=== PATIENT | female | born 1935 | race Caucasian/White ===

== ENCOUNTER 2017-08-22 10:22 | Emergency (ER) | payer MEDICARE ==
[~2017-08-22 10:22] MED LIST: ASPI81 PO; CALTTAB PO; FISH1000 PO; SIMV40TA PO
[2017-08-22] MEDS ORDERED: SIMV40TA PO (10:34)
--- NOTE | 2017-08-22 11:00 | RADRPT ---
EXAM DATE/TIME: 08/22/2017 10:42 [place] COMPARISON: No previous studies available for comparison. INDICATIONS : Left wrist pain post fall today. MEDICAL HISTORY : Hypercholesterolemia. Gastroesophageal reflux disease. SURGICAL HISTORY : Hysterectomy. D & C. Bladder suspension. ENCOUNTER: Initial ACUITY: 1 day PAIN SCORE: 6/10 LOCATION: Left wrist FINDINGS: Two view examination of the left wrist demonstrates transverse distal radial fracture 1.4 cm proximal to the radiocarpal articulation.. The joint spaces are maintained. Bony mineralization is normal. A cyst in the scaphoid bone. Nondisplaced ulnar styloid fracture CONCLUSION: Slightly impacted distal radial fracture without angulation or displacement. Nondisplaced fracture of the ulnar styloid.. Hi Anderson MD on August 22, 2017 at 10:56 Board Certified Radiologist. This report was verified electronically.
[2017-08-22] MEDS ORDERED: NORC5TAB PO (11:16)
--- NOTE | 2017-08-22 11:16 | PD ---
HPI Chief Complaint: Injury Time Seen by Provider: 10:52 Travel History International Travel<30 days: No Contact w/Intl Traveler<30days: No Traveled to known affect area: No History of Present Illness HPI 82-year-old female with left wrist pain after she tripped and fell onto an outstretched hand this morning. No head injury loss of consciousness. Patient is not anticoagulated. Symptom severity is moderate. Aggravated by palpation of the distal radius and range of motion of the wrist. Denies altered sensation or weakness of the wrist and hand. Denies any other injuries. PFSH Past Medical History Blood Disorders: No Cancer: No Cardiovascular Problems: No High Cholesterol: Yes Diabetes: No Diminished Hearing: No Endocrine: No Gastrointestinal Disorders: Yes (GERD) GERD: Yes Glaucoma: No Genitourinary: No Hepatitis: No Hiatal Hernia: No Hypertension: No Immune Disorder: No Musculoskeletal: No Neurologic: No Psychiatric: No Reproductive: No Respiratory: No Thyroid Disease: No Influenza Vaccination: Yes ?: Not Past Surgical History Abdominal Surgery: Yes (STENT IN R GROIN) AICD: No Body Medical Devices: STENT IN R GROIN Cardiac Surgery: No Ear Surgery: No Endocrine Surgery: No Eye Surgery: No Genitourinary Surgery: No Gynecologic Surgery: Yes (D&C, HYSTERECTOMY/ BLADDER SUSP.) Joint Replacement: No Oral Surgery: No Pacemaker: No Thoracic Surgery: No Other Surgery: Yes Social History Alcohol Use: No (RARELY) Tobacco Use: No Substance Use: No Allergies-Medications (Allergen,Severity, Reaction): Coded Allergies: No Known Allergies (Unverified Adverse Reaction, Unknown, 08/22/17) Reported Meds & Prescriptions Reported Meds & Active Scripts Active Reported Simvastatin 40 Mg Tab 40 Mg PO HS Review of Systems Except as stated in HPI: all other systems reviewed are Neg General / Constitutional: No: Fever Eyes: No: Visual changes HENT: No: Headaches Cardiovascular: No: Chest Pain or Discomfort Respiratory: No: Shortness of Breath Gastrointestinal: No: Abdominal Pain Neurologic: No: Weakness Physical Exam Narrative GENERAL: Alert and well-appearing 82-year-old female. SKIN: Warm and dry. HEAD: Normocephalic. Atraumatic EYES: Pupils equal, round, reactive to light. EOMs intact. No injection or drainage. NECK: Supple, trachea midline. No midline spine tenderness. Freely moves the neck. CARDIOVASCULAR: Regular rate and rhythm without murmurs, gallops, or rubs. No chest wall tenderness RESPIRATORY: Breath sounds equal bilaterally. No accessory muscle use. GASTROINTESTINAL: Abdomen soft, non-tender, nondistended. No rebound or guarding. MUSCULOSKELETAL: No cyanosis, or edema. RUE: +TTP distal radius with mild amount of swelling. Palpable radial pulse. No deformity. Patient can freely move the fingers. Normal sensation distally. Normal coloration. Brisk cap refill. BACK: Nontender without obvious deformity. No CVA tenderness. Data Data Orders Orders Wrist, Limited (Ap&Lat) (08/22/17 ) Ice/Cold Pack (08/22/17 10:35) Splint Or Brace Apply/Monitor (08/22/17 11:07) [facility] Medical Decision Making Medical Screen Exam Complete: Yes Emergency Medical Condition: Yes Differential Diagnosis Distal radius fracture, wrist sprain, contusion Narrative Course 82-year-old female with left wrist pain. Patient tripped and fell from a standing position. No head injury loss of consciousness. The extremity is neurovascularly intact. X-ray reveal impacted fracture of the distal radius which is nondisplaced. Sugar tong splint was applied by mold maintenance technician. Patient is to follow-up with orthopedic doctor this week. Diagnosis Primary Impression: Distal radius fracture, left Qualified Codes: S52.502A - Unspecified fracture of the lower end of left radius, initial encounter for closed fracture Referrals: Stefan Natarajan MD Orthopedist Additional Instructions: Splint must stay in place until follow-up with orthopedic. Pain medication as directed. Keep the splint elevated. Return if you have new or worsening symptoms. Scripts Hydrocodone-Acetaminophen ([place]) 5 Mg-325 Mg Tab 1 TAB PO Q6H Y for PAIN, #15 TAB 0 Refills Prov: Zora Do 08/22/17 Disposition: 01 DISCHARGE HOME Condition: Stable Zora Do Aug 22, 2017 11:15
== END 2017-08-22 11:25 | disposition home or self-care (01) ==
LOC: PHEFT 10:22
DX: S52.502A Unspecified fracture of the lower end of left radius, initial encounter for closed fracture (principal); E78.00 Pure hypercholesterolemia, unspecified; K21.9 Gastro-esophageal reflux disease without esophagitis; W01.0XXA Fall on same level from slipping, tripping and stumbling without subsequent striking against object, initial encounter
CPT/HCPCS: 29125; 73100